=== PATIENT | female | born 1975 | race Caucasian/White ===

== ENCOUNTER 2024-08-15 18:04 | Emergency (ER) | payer BC, SELFPAY ==
[2024-08-15 18:06] VITALS: BP 163/110
[2024-08-15 18:28] LABS: % Basophils 0.4 % (0-2); % Eosinophils 0.7 % (0-6); % Immature Granulocytes 0.3 % (0-0.5); % Lymphocytes 15.2 % (20.5-51.1); % Monocytes 9.6 % (1.7-9.3); % Neutrophils 73.8 % (42.2-75.2); Absolute Eosinophils 0.1 10^3/uL (0-0.7); Absolute Lymphocytes 1.5 10^3/uL (1.2-3.4); Absolute Monocytes 0.9 10^3/uL (0.1-0.6); Absolute Neutrophils 7.2 10^3/uL (1.4-6.5); Hematocrit 44.2 % (37.0-47.0); Hemoglobin 15.6 g/dL (12.0-16.0); Mean Corp Hgb Conc. 35.3 g/dL (33.0-37.0); Mean Corpuscular Hgb 31.6 pg (27.0-31.0); Mean Corpuscular Volume 89.5 fL (81.0-99.0); Mean Platelet Volume 9.4 fL (7.4-10.4); Nucleated Red Blood Cells % 0 %; Platelet Count 309 10^3/uL (130-400); Red Blood Cell Count 4.94 10^6/uL (4.20-5.40); Red Cell Dist. Width 12.2 % (11.5-14.5); White Blood Cell Count 9.8 10^3/uL (4.8-10.8)
[2024-08-15 18:43] LABS: Amphetamines Negative (Negative); Barbiturates Negative (Negative); Benzodiazepines Positive (Negative); Buprenorphine Negative (Negative); Cocaine Negative (Negative); Marijuana Negative (Negative); Methadone Negative (Negative); Methamphetamines Negative (Negative); Opiates Negative (Negative); Phencyclidine Negative (Negative); Tricyclic Antidepressants Negative (Negative)
[2024-08-15 18:49] LABS: ALT (SGPT) 28 U/L (0-35); AST (SGOT) 27 U/L (14-36); Albumin 4.6 g/dl (3.5-5.0); Alkaline Phosphatase 81 U/L (38-126); Blood Urea Nitrogen 14 mg/dl (7-17); Calcium 9.7 mg/dl (8.4-10.2); Carbon Dioxide 21 mmol/L (22-30); Chloride 102 mmol/L (98-107); Glucose 110 mg/dl (70-99); Potassium 4.2 mmol/L (3.5-5.1); Sodium 134 mmol/L (135-145); Total Bilirubin 0.5 mg/dl (0.2-1.3); Total Protein 7.4 g/dl (6.3-8.2); eGFR > 60.00
[2024-08-15 18:50] LABS: Alcohol None Detected
[2024-08-15 19:03] LABS: Fentanyl, Urine Negative (Negative)
--- NOTE | 2024-08-15 22:13 | ED.GENMED ---
History of Present Illness
General
Chief Complaint: Anxiety
Source: patient
Exam Limitations: none
Time Seen by Provider: 08/15/24 21:53
History of Present Illness
History of Present Illness:
49yoF with a history of anxiety and asthma presenting with her for evaluation of anxiety. Patient was previously on Klonopin 1 mg twice daily for several years. She decided to come off of this and was at [facility] for 1
week for detox. She returned home yesterday morning. While at the treatment facility, she was receiving an Ativan taper. She was not given any medications at discharge. Patient is here with anxiety and palpitations. She states it feels like her
heart is racing. She is scheduled to start a partial program in 3 days but is not sure what to do until then.
Past History
Past History
ED Past Medical History: Asthma, Psychiatric (A/D) and Other (LLL congenital pulmonary atresia)
ED Past Surgical History: Negative Cardiac
Social History
Tobacco: Non-smoker
Alcohol: Occasional
Drug: None
Personal:
Living: with family
Employment: Employed
Family History
Family History: Other (Breast cancer)
Phy Exam
General Physical Exam
General Presentation: well appearing
General Skin: warm and dry
General Habitus: normal
General Mental: alert and anxious
ENT Exam
ENT Exam: normocephalic
Cardiovascular Exam
Cardiovascular Exam: regular rate/rhythm and no murmur
Pulmonary Exam
Pulmonary Exam: lungs clear, no respiratory distress, no rales, no crackles and no rhonchi
Neurological Exam
Neurological Exam: alert
[place] Coma Scale
Eye Opening: Spontaneous
Verbal Response: Oriented
Motor Response: Obeys Commands
GCS Total Score: 15
Skin Exam
Skin Exam: normal color and warm/dry
Psychiatric Exam
Psychiatric Exam: anxious
Course
Orders/Labs/Results
Orders:
Orders
08/15/24 18:20
Alcohol Urgent
Complete Blood Count/With Diff Urgent
Comprehensive Metabolic Panel Urgent
Fentanyl, Urine Urgent
Urine Drug Abuse Screen Urgent
Date Specimen was Collected: 08/15/24
Time Specimen was Collected: 18:11
08/15/24 18:23
Add On- LAB Urgent
Tests Added?: alcohol
08/15/24 22:13
Electrocardiogram (*1) Urgent
Reason for Study: Palpitations
Crisis Consult Urgent
Reason for Consult: anxiety, eval
EKG- Treatment ONCE
08/15/24 22:50
Troponin I Urgent
08/16/24 00:14
HydrOXYZINE [Atarax] 50 mg PO ONCE ONE
Abnormal Lab Results
08/15/24
18:20
MCH 31.6 H pg
(27.0-31.0)
Absolute Neuts (auto) 7.2 H 10^3/uL
(1.4-6.5)
Absolute Monos (auto) 0.9 H 10^3/uL
(0.1-0.6)
Lymphocytes % 15.2 L %
(20.5-51.1)
Monocytes % 9.6 H %
(1.7-9.3)
Sodium 134 L mmol/L
(135-145)
Carbon Dioxide 21 L mmol/L
(22-30)
Glucose 110 H mg/dl
(70-99)
U Benzodiazepines Scrn Positive H
(Negative)
08/15/24 18:20
08/15/24 18:20
Vital Signs
Initial and Last Documented VS:
Initial Vital Signs
Temp Pulse Resp BP Pulse Ox
97.6 F 103 18 163/110 95
08/15/24 18:06 08/15/24 18:06 08/15/24 18:06 08/15/24 18:06 08/15/24 18:06
Last Documented Vital Signs
Temp Pulse Resp BP Pulse Ox
97.6 F 76 23 131/87 97
08/15/24 18:06 08/15/24 23:25 08/15/24 23:25 08/15/24 23:25 08/15/24 23:25
MDM/Problems Addressed
Differential Diagnosis Includes:
49yoF here with anxiety. Released from a detox facility yesterday to taper off of Klonopin. C/o severe anxiety and feeling like her heart is racing. Patient is very anxious on exam. Differential diagnosis includes but is not limited to: Anxiety,
arrhythmia, ACS, no objective evidence of benzodiazepine withdrawal on examination
Initial ED plan: CBC and CMP obtained in triage. Labs overall unremarkable. Will check EKG and troponin. Will consult crisis.
*EKG
Interpreted by ED Provider?: Yes
EKG Intrepretation Date: 08/15/24
Heart Rate: 76
Rate: normal
Rhythm: sinus
[place]: normal axis
Interval: normal interval
QRS Pattern: normal QRS
Ischemia: no ischemia
*Critical Care Note
Total Time (30-74mins, 75-104mins- exclusive of procedures): Not Applicable
Update Note
Update Note:
EKG shows normal sinus rhythm without ischemic changes or ectopy. Troponin within normal limits. Patient was evaluated by crisis. She is scheduled to start a partial program in 3 days. No indication for inpatient psychiatric admission at this
time. Patient arrives with paperwork from detox facility which indicates that she was given hydroxyzine 50 mg every 6 as needed during her stay. Will give a prescription for this to hold her over until her partial program starts. She was also
advised to follow-up with her psychiatrist. Patient in agreement with plan and was discharged in stable condition.
ED Attending Note
-
Portions of this chart may have been created with voice recognition software.� Occasional wrong word or��sound alike� substitutions may have occurred due to the inherent limitations of voice recognition software.
Discharge Plan
Departure
Patient Disposition: Home (Routine Discharge)
Date of Disposition: 08/16/24
Time of Disposition: 00:14
Patient with high blood pressure during this ER visit?: Yes
Discharge Problem:
Anxiety
Instructions: Anxiety, Adult (DC)
Prescriptions:
New
hydroxyzine HCl 50 mg tablet
50 mg PO QID PRN (Reason: anxiety) Qty: 20 0RF
No Action
fluoxetine [Prozac] 40 MG capsule
40 mg PO DAILY
clonazepam 0.25 MG tablet,disintegrating
0.5 mg PO DAILYPRN PRN (Reason: anxiety)
ipratropium-albuterol 3 ML solution for nebulization
3 ml inhalation R Q4HPRN PRN (Reason: cough, wheeze) Qty: 40 0RF
fluticasone furoate-vilanterol [Breo Ellipta] 1 EACH blister with device
1 ea IH DAILY
Ceftin:
1 tab PO Q12
Patient Comments:
pt unsure of doseage
prednisone 50 MG tablet
50 mg PO DAILY Qty: 4 0RF
Referrals:
Carla Burr MD [Family Provider] -
Activity Restrictions/Additional Instructions:
Take hydroxyzine as needed for anxiety.
Start the partial program on Saturday and follow-up with your psychiatrist. Return to the ER with any worsening symptoms.
Interventions
Interventions:
*Risk Screen - Suicide Last Done: 08/15/24 18:06
*General Assessment Last Done: 08/15/24 18:06
*Neglect/Abuse Screening Last Done: 08/16/24 00:53
ED- Fall Risk Assessment Last Done: 08/15/24 23:26
*ED COVID-19 Vaccine History Last Done: 08/15/24 18:06
*Nursing Disposition Last Done: 08/16/24 00:53
ED-Psychological Assessment Last Done: 08/15/24 23:26
Discharge Date and Time
Discharge Date/Time: 08/16/24 00:53
Print Language: OCCITAN
--- NOTE | 2024-08-15 22:25 | EDRN ---
Crisis is at bedside with patient.
[2024-08-15 23:25] VITALS: BP 131/87
[2024-08-15 23:42] LABS: Troponin I < 0.012 ng/ml
[2024-08-16] MEDS: ATARAX 50 MG PO (00:37)
--- NOTE | 2024-08-16 00:52 | EDRN ---
Patient ate a turkey sandwich while here and will be discharged home, helped her set up uber and showed her where she can wait for it in the lobby
== END 2024-08-16 00:53 | disposition home or self-care (01) ==
LOC: EMR 18:04
PROVIDERS: Emergency Medicine; Physician Assistant; EMERGENCY PHYSICIAN Student in an Organized Health Care Education/Training Program; FAMILY PHYSICIAN Internal Medicine
DX: F41.9 Anxiety disorder, unspecified (principal); R00.2 Palpitations; R03.0 Elevated blood-pressure reading, without diagnosis of hypertension; J45.909 Unspecified asthma, uncomplicated; Q25.5 Atresia of pulmonary artery; F32.A Depression, unspecified
CPT/HCPCS: 99283; 80053; 80306; 80307; 82077; 84484; 85025; 93005

== ENCOUNTER 2025-01-05 11:26 | Emergency (ER) | payer BC, SELFPAY ==
[2025-01-05 11:33] VITALS: BP 139/92
--- NOTE | 2025-01-05 12:27 | ED.GENMED ---
History of Present Illness
<Shanelle Hernandez PA-C - Last Filed: 01/06/25 23:04>
General
Chief Complaint: Crisis Evaluation
Source: patient
Exam Limitations: none
Time Seen by Provider: 01/05/25 11:45
Nursing documentation reviewed up to this point in time: agreed with
History of Present Illness
History of Present Illness:
49 y/o F with h/o anxiety, depression, asthma
here with feeling depressed and hopeless, relatd to her severe debilitating anxiety
pt is having a hard time describing but says that she feels like she has lost hope that any medications or treatment may help her, but she feels that her family is better off without her. she has been feeling this way for a few weeks
last hosptialized in august
was on bz but denies she is on them now
pt says she ran out of her lamictal but didn't feel like it ever helped her anyway
she has no medical complaitns
denies having plan, hallucinations
pt is here becuase she thinksshe needs intpatient treatment
Past History
<Shanelle Hernandez PA-C - Last Filed: 01/06/25 23:04>
Past History
ED Past Medical History: Asthma, Psychiatric (A/D) and Other (LLL congenital pulmonary atresia)
ED Past Surgical History: Negative Cardiac
Social History
Tobacco: Non-smoker
Alcohol: Occasional
Drug: None
Personal:
Living: with family
Employment: Employed
Family History
Family History: Other (Breast cancer)
Review of Systems
<Shanelle Hernandez PA-C - Last Filed: 01/06/25 23:04>
Review of Systems
Allergies reviewed?: Yes
All Other Systems: Not applicable
Phy Exam
<Shanelle Hernandez PA-C - Last Filed: 01/06/25 23:04>
Physical Exam
Physical Exam:
GENERAL: Alert , tearful, anxious
EYE: pupils equal and reactive
NECK: Supple
ENT: o/p clr, mmm.
CARDIAC: Regular rate and rhythm .
LUNGS: Clear breath sounds bilaterally, no acute respiratory distress, no wheezes/rales/rhonchi
ABDOMEN: Soft, without focal tenderness, no r/g, no cvat, normal bowel sounds
NEUROLOGICAL: Alert and oriented, no focal neuro deficits
SKIN: Warm and dry, skin intact.
MUSCULOSKELETAL: No edema, well perfused. neg yareli's sign
PSYCH: anxious, depressed affect; no SI, no halluicinations
Course
<Shanelle Hernandez PA-C - Last Filed: 01/06/25 23:04>
Orders/Labs/Results
Orders:
Orders
01/05/25 11:35
1:1 Observation - Suicide/ Violent Behavior As Directed
Crisis Consult Urgent
Reason for Consult: SI
01/05/25 13:43
HydrOXYZINE [Atarax] 50 mg PO NOW STA
01/05/25 15:51
HydrOXYZINE [Atarax] 50 mg .ROUTE .STK-MED ONE
Vital Signs
Initial and Last Documented VS:
Initial Vital Signs
Temp Pulse Resp BP Pulse Ox
36.8 C 102 18 139/92 96
01/05/25 11:33 01/05/25 11:33 01/05/25 11:33 01/05/25 11:33 01/05/25 11:33
Last Documented Vital Signs
Temp Pulse Resp BP Pulse Ox
36.7 C 94 16 136/86 98
01/05/25 19:43 01/05/25 19:43 01/05/25 19:43 01/05/25 19:43 01/05/25 19:43
<HELIO Wheatley Last Filed: 01/05/25 21:24>
Orders/Labs/Results
Orders:
Orders
01/05/25 11:35
1:1 Observation - Suicide/ Violent Behavior As Directed
Crisis Consult Urgent
Reason for Consult: SI
01/05/25 13:43
HydrOXYZINE [Atarax] 50 mg PO NOW STA
01/05/25 15:51
HydrOXYZINE [Atarax] 50 mg .ROUTE .STK-MED ONE
Vital Signs
Initial and Last Documented VS:
Initial Vital Signs
Temp Pulse Resp BP Pulse Ox
36.8 C 102 18 139/92 96
01/05/25 11:33 01/05/25 11:33 01/05/25 11:33 01/05/25 11:33 01/05/25 11:33
Last Documented Vital Signs
Temp Pulse Resp BP Pulse Ox
36.7 C 94 16 136/86 98
01/05/25 19:43 01/05/25 19:43 01/05/25 19:43 01/05/25 19:43 01/05/25 19:43
<Shanelle Hernandez PA-C - Last Filed: 01/06/25 23:04>
MDM/Problems Addressed
Differential Diagnosis Includes:
anxiety, depression
MDM/Problems Addressed:
49 y/o F
h/o anxiety and depression
no SI
here feeling very anxious
feels hopeless
lives with corrie hernandez but doesn't feel like she is capable of being outpatient
thinks she needs inpatient help for anxiety
she converses; is coopeartive
but tearful
no speicific plan or thought sto hurt self
seen by crisis
offered placement, pt 201
pending dispo
hydroxyzine ordered prn anxiety.
signed out
<HELIO Wheatley - Last Filed: 01/05/25 21:24>
MDM/Problems Addressed
MDM/Problems Addressed:
49 y/o F
h/o anxiety and depression
no SI
here feeling very anxious
feels hopeless
lives with corrie hernandez but doesn't feel like she is capable of being outpatient
thinks she needs inpatient help for anxiety
she converses; is coopeartive
but tearful
no speicific plan or thought sto hurt self
seen by crisis
offered placement, pt 201
pending dispo
hydroxyzine ordered prn anxiety.
signed out
Patient has been stable resting. As per crisis potential bed at [facility]
2119: Patient went to [facility]
<Shanelle Hernandez PA-C - Last Filed: 01/06/25 23:04>
*Pulse Oximetry
SaO2: 96
Oxygen Mode of Delivery: Room air
<HELIO Wheatley - Last Filed: 01/05/25 21:24>
*Pulse Oximetry
Patient hypoxic: not evaluated
*Critical Care Note
Total Time (30-74mins, 75-104mins- exclusive of procedures): Not Applicable
ED Attending Note
<Shanelle Hernandez PA-C - Last Filed: 01/06/25 23:04>
-
Portions of this chart may have been created with voice recognition software.� Occasional wrong word or��sound alike� substitutions may have occurred due to the inherent limitations of voice recognition software.
Discharge Plan
Departure
Patient Disposition: Psych Facility
Date of Disposition: 01/05/25
Time of Disposition: 21:23
Patient with high blood pressure during this ER visit?: Yes
Condition: Fair
Covid-19: Not Applicable
Discharge Problem:
Anxiety
Prescriptions:
No Action
fluoxetine [Prozac] 40 MG capsule
40 mg PO DAILY
clonazepam 0.25 MG tablet,disintegrating
0.5 mg PO DAILYPRN PRN (Reason: anxiety)
ipratropium-albuterol 3 ML solution for nebulization
3 ml inhalation R Q4HPRN PRN (Reason: cough, wheeze) Qty: 40 0RF
fluticasone furoate-vilanterol [Breo Ellipta] 1 EACH blister with device
1 ea IH DAILY
Ceftin:
1 tab PO Q12
Patient Comments:
pt unsure of doseage
prednisone 50 MG tablet
50 mg PO DAILY Qty: 4 0RF
hydroxyzine HCl 50 mg tablet
50 mg PO QID PRN (Reason: anxiety) Qty: 20 0RF
Referrals:
UNKNOWN,NO INTERVIEW [Family Provider]
Interventions
Interventions:
*Risk Screen - Suicide Last Done: 01/05/25 11:33
*General Assessment Last Done: 01/05/25 11:45
*Neglect/Abuse Screening Last Done: 01/05/25 11:33
*ED- Fall Risk Assessment Last Done: 01/05/25 11:45
*ED COVID-19 Vaccine History Last Done: 01/05/25 11:45
*Nursing Disposition Last Done: 01/05/25 21:15
ED-Psychological Assessment Last Done: 01/05/25 11:45
Discharge Date and Time
Discharge Date/Time: 01/05/25 21:15
Print Language: BULGARIAN
[2025-01-05] MEDS: ATARAX 50 MG PO (15:53)
[2025-01-05 19:43] VITALS: BP 136/86
== END 2025-01-05 21:15 ==
LOC: EMR 11:26
PROVIDERS: EMERGENCY PHYSICIAN Emergency Medicine
DX: F41.9 Anxiety disorder, unspecified (principal); J45.909 Unspecified asthma, uncomplicated
CPT/HCPCS: 99283

== ENCOUNTER → 2025-06-30 10:18 | Outpatient (REF) | payer BC, SELFPAY | LOC: RCS 10:18 | PROVIDERS: ATTENDING PHYSICIAN Nurse Practitioner Family | DX: R00.2 Palpitations (principal) | CPT/HCPCS: 93225; 93226 ==